=== PATIENT | female | born 1995 | race American Indian/Alaskan Native ===

== ENCOUNTER 2021-02-16 22:33 | Observation (INO) | payer SELFPAY ==
[2021-02-16] MEDS ORDERED: SODIUM CHLORIDE 0.9% 1000 ML 1,000 ML IV ONE (23:08)
[2021-02-16] MEDS ORDERED: ONDANSETRON 4 MG ODT TAB PO ONE (23:08)
[2021-02-16] MEDS ORDERED: ACETAMINOPHEN 325 MG TAB PO ONE (23:09)
[2021-02-17 00:18] LABS: Mean Corpuscular HGB Conc 26 % (30-34); Platelet Count 366 K/mm3 (140-440); Red Blood Count 2.57 M/mm3 (3.65-5.03)
[2021-02-17 00:29] LABS: Albumin 4.4 g/dL (3.9-5); BUN/Creatinine Ratio 15; Blood Urea Nitrogen 12 mg/dL (7-17); Hemolysis Index 0
[2021-02-17 00:30] LABS: Alanine Aminotransferase < 5 units/L (7-56)
[2021-02-17 00:33] LABS: Hematocrit 14.6 % (30.3-42.9); Hemoglobin 3.8 gm/dl (10.1-14.3); Mean Corpuscular Volume 57 fl (79-97)
[2021-02-17 00:34] LABS: Red Cell Distribution Width 32.8 % (13.2-15.2)
[2021-02-17] MEDS ORDERED: SODIUM CHLORIDE 0.9% 500 ML 500 ML IV ONE ×2 (01:01→04:00)
--- NOTE | 2021-02-17 01:05 | Emergency Department Report ---
HPI - General Chief Complaint: Weakness Time Seen by Provider: 02/17/21 01:01 - HPI HPI: This is a 25-year-old -[place] female presents to the emergency department with a complaint of generalized weakness, shortness of breath, nausea without vomiting, and says "I think my iron is low." Patient has a history of iron deficiency anemia, heavy menstrual cycles, and has required multiple transfusions in the past. The last time that she needed a blood transfusion was about 2 years ago. Patient says that she went to [employer] earlier today and s ays "I was not able to do anything." Any type of exertion made her feel weak and short of breath. She denies any fever, chest pain, lower extremity swelling, cough. The patient finished her menstrual cycle yesterday. She does not have a primary care physician or DIPLOMATIC COURIER. She denies any tobacco or illicit drug use. She has not taken anything for symptoms prior to presentation today. ED Past Medical Hx - Past Medical History Previous Medical History?: Yes Additional medical history: anemia - Surgical History Past Surgical History?: Yes Additional Surgical History: back ED Review of Systems ROS: Stated complaint: ELIGIO;LOW IRON;HEADACHE Other details as noted in HPI Comment: All other systems reviewed and negative Constitutional: weakness. denies: chills, fever Eyes: denies: eye pain, vision change ENT: denies: ear pain, throat pain Respiratory: shortness of breath, SOB with exertion. denies: cough Cardiovascular: denies: chest pain, edema Gastrointestinal: nausea. denies: abdominal pain, vomiting Genitourinary: abnormal menses. denies: dysuria, discharge Musculoskeletal: denies: back pain, arthralgia Skin: denies: rash, lesions Neurological: denies: numbness, paresthesias Physical Exam - Physical Exam Vital Signs: Vital Signs 02/16/21 23:04 Pulse Rate 108 H Respiratory 18 Rate Blood Pressure 102/53 O2 Sat by Pulse 99 Oximetry Physical Exam: GENERAL: The patient is well-developed well-nourished. HENT: Normocephalic. Atraumatic. Patient has moist mucous membranes. EYES: Extraocular motions are intact. Pupils equal reactive to light bilaterally. Pale conjunctiva. NECK: Supple. Trachea is midline. CHEST/LUNGS: Clear to auscultation. No tachypnea or accessory muscle use. Ther e is no respiratory distress noted. HEART/CARDIOVASCULAR: Regular. There is mild tachycardia. There is no murmur. ABDOMEN: Abdomen is soft, nontender. Patient has normal bowel sounds. SKIN: Skin is warm and dry. NEURO: The patient is awake, alert, and oriented. The patient is cooperative. The patient has no focal neurologic deficits. Normal speech. MUSCULOSKELETAL: There is no tenderness or deformity. There is no limitation range of motion. ED Course Vital Signs 02/16/21 23:04 Pulse Rate 108 H Respiratory 18 Rate Blood Pressure 102/53 O2 Sat by Pulse 99 Oximetry ED Medical Decision Making - Lab Data Result diagrams: 02/16/21 23:31 02/16/21 23:31 Lab Results 02/16/21 02/16/21 02/16/21 Range/Units 23:31 23:31 23:31 WBC 9.4 (4.5-11.0) K/mm3 RBC 2.57 L (3.65-5.03) M/mm3 Hgb 3.8 L* (10.1-14.3) gm/dl Hct 14.6 L* (30.3-42.9) % MCV 57 L (79-97) fl MCH 15 L (28-32) pg MCHC 26 L (30-34) % RDW 32.8 H (13.2-15.2) % Plt Count 366 (140-440) K/mm3 Add Manual Diff Complete Total Counted 100 Seg Neuts % (Manual) 77.0 H (40.0-70.0) % Lymphocytes % (Manual) 18.0 (13.4-35.0) % Monocytes % (Manual) 5.0 (0.0-7.3) % Nucleated RBC % Not Reportable Seg Neutrophils # Man 7.2 (1.8-7.7) K/mm3 Band Neutrophils # 0.0 K/mm3 Lymphocytes # (Manual) 1.7 (1.2-5.4) K/mm3 Abs React Lymphs (Man) 0.0 K/mm3 Monocytes # (Manual) 0.5 (0.0-0.8) K/mm3 Eosinophils # (Manual) 0.0 (0.0-0.4) K/mm3 Basophils # (Manual) 0.0 (0.0-0.1) K/mm3 Metamyelocytes # 0.0 K/mm3 Myelocytes # 0.0 K/mm3 Promyelocytes # 0.0 K/mm3 Blast Cells # 0.0 K/mm3 WBC Morphology Not Reportable Hypersegmented Neuts Not Reportable Hyposegmented Neuts Not Reportable Hypogranular Neuts Not Reportable Smudge Cells Not Reportable Toxic Granulation Not Reportable Toxic Vacuolation Not Reportable Dohle Bodies Not Reportable Pelger-Huet Anomaly Not Reportable Vita Rods Not Reportable Platelet Estimate Consistent w auto Clumped Platelets Not Reportable Plt Clumps, EDTA Not Reportable Large Platelets Not Reportable Giant Platelets Not Reportable Platelet Satelliting Not Reportable Plt Morphology Comment Not Reportable RBC Morphology Not Reportable Dimorphic RBCs Not Reportable Polychromasia Not Reportable Hypochromasia 2+ Poikilocytosis Not Reportable Anisocytosis 2+ Microcytosis 2+ Macrocytosis Not Reportable Spherocytes Not Reportable Pappenheimer Bodies Not Reportable Sickle Cells Not Reportable Target Cells Not Reportable Tear Drop Cells Not Reportable Ovalocytes Not Reportable Helmet Cells Not Reportable [place] Bodies Not Reportable [place] Rings Not Reportable [place] Cells Not Reportable Bite Cells Not Reportable Crenated Cell Not Reportable Elliptocytes Not Reportable Acanthocytes (Spur) Not Reportable Rouleaux Not Reportable Hemoglobin C Crystals Not Reportable Schistocytes Not Reportable Malaria parasites Not Reportable Olman Bodies Not Reportable Hem Pathologist Commnt No Sodium 138 (137-145) mmol/L Potassium 4.0 (3.6-5.0) mmol/L Chloride 103.1 (98-107) mmol/L Carbon Dioxide 25 (22-30) mmol/L Anion Gap 14 mmol/L BUN 12 (7-17) mg/dL Creatinine 0.8 (0.6-1.2) mg/dL Estimated GFR > 60 ml/min BUN/Creatinine Ratio 15 % Glucose 99 (65-100) mg/dL Calcium 9.0 (8.4-10.2) mg/dL Total Bilirubin 0.40 (0.1-1.2) mg/dL AST 13 (5-40) units/L ALT < 5 L (7-56) units/L Alkaline Phosphatase 59 (35-129) units/L Total Protein 7.0 (6.3-8.2) g/dL Albumin 4.4 (3.9-5) g/dL Albumin/Globulin Ratio 1.7 % HCG, Qual Negative (Negative) - Radiology Data Radiology results: image reviewed interpreted by me: Chest x-ray does not show any acute process. There are no pleural effusions, obvious pneumonia and there is no pneumothorax. No significant cardiomegaly. No widened mediastinum. - Medical Decision Making This patient presents to the emergency department with the complaint of some generalized weakness, shortness of breath with exertion, fatigue, and she had suspicion that she was anemic. The patient has required blood transfusions in the past. Her hemoglobin came back at 3.8 and it is microcytic. 3 units of packed red blood cells have been ordered for transfusion to start. This should get her close to a hemoglobin of 7. Chest x-ray did not show any pneumonia, pleural effusions, pneumothorax, widened mediastinum, or any other acute process. The rest of the blood work has been unremarkable including metabolic panel. Patient will be admitted to the hospital for further evaluation and treatment and was accepted for admission by the hospitalist, Dr. Hood. Critical Care Time: Yes Critical care time in (mins) excluding proc time.: 35 Critical care attestation.: If time is entered above; I have spent that time in minutes in the direct care of this critically ill patient, excluding procedure time. Critical care time was spent on this patient in doing her initial evaluation, multiple reevaluations, ordering and interpretation of labs and imaging, ordering of 3 units of packed red blood cells for transfusion secondary to her symptomatic anemia, and multiple discussions with the patient. Critical Care Time: 35 minutes ED Disposition Clinical Impression: Anemia requiring transfusions, Symptomatic anemia, Microcytic anemia Disposition: OP ADMIT IP TO THIS HOSP Is pt being admited?: Yes Condition: Serious Time of Disposition: 01:48
[2021-02-17] MEDS ORDERED: ACETAMINOPHEN 325 MG TAB PO PRN (02:13)
[2021-02-17] MEDS ORDERED: ONDANSETRON 4 MG/2 ML INJ IV PRN (02:13)
[2021-02-17] MEDS ORDERED: ALBUTEROL 2.5 MG/3 ML NEBU IH PRN (02:13)
--- NOTE | 2021-02-17 02:19 | History and Physical Report ---
History of Present Illness Date of examination: 02/17/21 Date of admission: 02/17/21 Chief complaint: Weakness History of present illness: 25-year-old -Italian female with history of anemia and heavy menstrual bleeding presents to the emergency department with a complaint of generalized weakness, shortness of breath, nausea without vomiting, and says "I think my iron is low." Patient has a history of iron deficiency anemia, heavy menstrual cycles, and has required multiple transfusions in the past. The last time that she needed a blood transfusion was about 2 years ago. Patient says that she went to [employer] earlier today and says "I was not able to do anything." Any type of exertion made her feel weak and short of breath. She denies any fever, chest pain, lower extremity swelling, cough. The patient finished her menstrual cycle yesterday. She does not have a primary care physician or DOUBLE BOTTOM DRIVER. She denies any tobacco or illicit drug use. She has not taken anything for symptoms prior to presentation today. In the emergency room patient is found to have hemoglobin of 3.8 and hematocrit 14.6. Patient has no active bleeding right now Past History Past Medical History: anemia Medications and Allergies Allergies Allergy/AdvReac Type Severity Reaction Status Date / Time No Known Allergies Allergy Unverified 02/16/21 23:05 Review of Systems Constitutional: weakness Respiratory: shortness of breath Gastrointestinal: nausea Exam - Constitutional Vitals: Temp Pulse Resp BP Pulse Ox 108 H 18 102/53 99 02/16/21 23:04 02/16/21 23:04 02/16/21 23:04 02/16/21 23:04 General appearance: Present: no acute distress, well-nourished - EENT Eyes: Present: PERRL ENT: hearing intact, clear oral mucosa - Neck Neck: Present: supple, normal ROM - Respiratory Respiratory effort: normal Respiratory: bilateral: CTA - Cardiovascular Heart Sounds: Present: S1 & S2. Absent: rub, click - Extremities Extremities: pulses symmetrical, No edema Peripheral Pulses: within normal limits - Abdominal General gastrointestinal: Present: soft, non-tender, non-distended, normal bowel sounds Female genitourinary: Present: normal - Integumentary Integumentary: Present: clear, warm, dry - Musculoskeletal Musculoskeletal: gait normal, strength equal bilaterally - Psychiatric Psychiatric: appropriate mood/affect, intact judgment & insight - Neurologic Neurologic: CNII-XII intact, moves all extremities Results - Labs CBC & Chem 7: 02/16/21 23:31 02/16/21 23:31 Labs: Laboratory Last Values WBC 9.4 K/mm3 (4.5-11.0) 02/16/21 23: RBC 2.57 M/mm3 (3.65-5.03) L 02/16/21 23:31 Hgb 3.8 gm/dl (10.1-14.3) L* 02/16/21 23: Hct 14.6 % (30.3-42.9) L* 02/16/21 23: MCV 57 fl (79-97) L 02/16/21 23: MCH 15 pg (28-32) L 02/16/21 23: MCHC 26 % (30-34) L 02/16/21 23: RDW 32.8 % (13.2-15.2) H 02/16/21 23:31 Plt Count 366 K/mm3 (140-440) 02/16/21 23:31 Sodium 138 mmol/L (137-145) 02/16/21 23:31 Potassium 4.0 mmol/L (3.6-5.0) 02/16/21 23: Chloride 103.1 mmol/L (98-107) 02/16/21 23: Carbon Dioxide 25 mmol/L (22-30) 02/16/21 23: Anion Gap 14 mmol/L 02/16/21 23: BUN 12 mg/dL (7-17) 02/16/21 23: Creatinine 0.8 mg/dL (0.6-1.2) 02/16/21 23: Estimated GFR > 60 ml/min 02/16/21 23:31 BUN/Creatinine Ratio 15 % 02/16/21 23: Glucose 99 mg/dL (65-100) 02/16/21 23: Calcium 9.0 mg/dL (8.4-10.2) 02/16/21 23: Total Bilirubin 0.40 mg/dL (0.1-1.2) 02/16/21 23: AST 13 units/L (5-40) 02/16/21 23: ALT < 5 units/L (7-56) L 02/16/21 23:31 Alkaline Phosphatase 59 units/L (35-129) 02/16/21 23:31 Total Protein 7.0 g/dL (6.3-8.2) 02/16/21 23:31 Albumin 4.4 g/dL (3.9-5) 02/16/21 23:31 Albumin/Globulin Ratio 1.7 % 02/16/21 23:31 HCG, Qual Negative (Negative) 02/16/21 23:31 - Imaging and Cardiology Chest x-ray: image reviewed Assessment and Plan VTE prophylaxis?: Mechanical Plan of care discussed with patient/family: Yes - Patient Problems (1) Anemia requiring transfusions Current Visit: Yes Status: Acute Plan to address problem: Admit the patient to the medical floor. Put the patient on cardiac diet. Patient is getting 3 unit of packed red blood cell transfusion. We also put the patient on iron tablet 325 mg p.o. twice daily. Recheck CBC in the morning. Wi ll consult DOUBLE BOTTOM DRIVER if needed in the morning (2) Microcytic anemia Current Visit: Yes Status: Acute Plan to address problem: Patient is getting 3 unit of packed red blood cell transfusion. We also put the patient on iron tablet 325 mg p.o. twice daily. We also sent for iron study. recheck CBC in the morning (3) DVT prophylaxis Current Visit: Yes Status: Acute Plan to address problem: SCD for DVT prophylaxis. Protonix 40 mg p.o. daily for GI prophylaxis. Patient is a full code
[2021-02-17 02:38] LABS: Total Cells Counted 100
[2021-02-17 02:39] LABS: Anisocytosis 2+; Hypochromasia 2+; Platelet Estimate Consistent w Auto
--- NOTE | 2021-02-17 02:47 | XRay Report ---
CHEST 1 VIEW 1304 INDICATION / CLINICAL INFORMATION: SOB COMPARISON: None available. FINDINGS: SUPPORT DEVICES: None HEART / MEDIASTINUM: No significant abnormality. LUNGS / PLEURA: Artifact overlies the image. No obvious acute infiltrates are seen. No pneumothorax. ADDITIONAL FINDINGS: No significant additional findings. IMPRESSION: No significant acute abnormality Signer Name: Benjamín Pitts MD Signed: 02/17/2021 2:42 AM Workstation Name: [id number]
[2021-02-17] MEDS ORDERED: PANTOPRAZOLE 40 MG TAB PO SCH (07:30)
[2021-02-17] MEDS ORDERED: IPRATROPIUM/ALBUTEROL SULFATE 3 ML AMPUL.NEB IH SCH (08:00)
[2021-02-17] MEDS: FERROUS SULFATE 325 MG TAB PO SCH ×2 (09:11→21:41)
[2021-02-17] MEDS: PANTOPRAZOLE 40 MG TAB PO SCH (09:12)
--- NOTE | 2021-02-17 09:35 | Event Note ---
Date: 02/17/21 Patient was seen and evaluated this morning, patient has severe anemia with hemoglobin of 3.48. 3 units of packed RBC was ordered and she already got 1 unit of blood and will get 2 more units. Patient's shortness of breath is getting better. Patient states she had pelvic ultrasound a year ago and was normal. Patient admitted earlier this morning and continue management as outlined in HPI.
[2021-02-18 03:04] LABS: % Iron Saturation 7.51 %
[2021-02-18 05:47] VITALS: BP 100/61
[2021-02-18 06:49] LABS: Hematocrit 27.8 % (30.3-42.9); Hemoglobin 8.7 gm/dl (10.1-14.3); Mean Corpuscular HGB Conc 31 % (30-34); Mean Corpuscular Volume 73 fl (79-97); Platelet Count 372 K/mm3 (140-440); Red Blood Count 3.79 M/mm3 (3.65-5.03)
[2021-02-18 07:08] LABS: Blood Urea Nitrogen 7 mg/dL (7-17); Calcium 8.5 mg/dL (8.4-10.2); Hemolysis Index 0
[2021-02-18 07:11] LABS: BUN/Creatinine Ratio 12
[2021-02-18] MEDS: PANTOPRAZOLE 40 MG TAB PO SCH (08:56)
[2021-02-18] MEDS: FERROUS SULFATE 325 MG TAB PO SCH (09:40)
[2021-02-18 09:53] LABS: Anisocytosis 3+; Giant Platelets Rare; Hypochromasia 2+; Platelet Estimate Consistent w Auto; Spherocytes 1+; Target Cells Rare; Total Cells Counted 100
--- NOTE | 2021-02-18 11:33 | Discharge Summary ---
Providers - Providers Date of Admission: 02/17/21 01:48 Attending physician: JOSEPHINE MATTHEWS MD Primary care physician: SPACE OPERATIONS OFFICER Hospitalization Reason for admission: shortenss of breath Condition: Stable Hospital course: 25-year-old -[place] Citizen female with history of anemia and heavy menstrual bleeding presents to the emergency department with a complaint of generalized weakness, shortness of breath, nausea without vomiting, and says "I think my iron is low." Patient has a history of iron deficiency anemia, heavy menstrual cycles, and has required multiple transfusions in the past. The last time that she needed a blood transfusion was about 2 years ago. Patient says that she went to [employer] earlier today and says "I was not able to do anything." Any type of exertion made her feel weak and short of breath. She denies any fever, chest pain, lower extremity swelling, cough. The patient finished her menstrual cycle yesterday. She does not have a primary care physician or CREATIVE SERVICES SPECIALIST. She denies any tobacco or illicit drug use. She has not taken anything for symptoms prior to presentation today. In the emergency room patient is found to have hemoglobin of 3.8 and hematocrit 14.6. Patient has no active bleeding right now Patient was seen and evaluated this morning, patient has severe anemia with hemoglobin of 3.48. 3 units of packed RBC was ordered and she already got 1 unit of blood and will get 2 more units. Patient's shortness of breath is getting better. Patient states she had pelvic ultrasound a year ago and was normal. Patient admitted earlier this morning and continue management as outlined in HPI. Patient received a total of 3 units packed red blood cell with good improvement in hemoglobin to greater than 8. She states that she is feeling well she is ambulating the time of my evaluation fully clothed with ready to be discharged. She says she will follow with her ticker installer and BOAT BUILDER doctor. I still went ahead and prescribed some referral for her if she is unable to follow-up with her doctors. Respiratory status is improved no further shortness of breath noted. (1) Anemia requiring transfusions (2) symptomatic microcytic anemia (3) menorrhagia Disposition: TO HOME OR SELFCARE Final Discharge Diagnosis (Prints w/discharge instructions): Symptomatic anemia Time spent for discharge: 32 mins Core Measure Documentation - Palliative Care Palliative Care/ Comfort Measures: Not Applicable - Core Measures Any of the following diagnoses?: none Exam - Physical Exam Narrative exam: VITAL SIGNS: Reviewed. GENERAL: The patient appears normally developed, Vital signs as documented. HEAD: No signs of head trauma. EYES: Pupils are equal. Extraocular motions intact. EARS: Hearing grossly intact. MOUTH: Oropharynx is normal. NECK: No adenopathy, no JVD. CHEST: Chest with clear breath sounds bilaterally. No wheezes, rales, or rhonchi. CARDIAC: Regular rate and rhythm. S1 and S2, without murmurs, gallops, or rubs. VASCULAR: No Edema. Peripheral pulses normal and equal in all extremities. ABDOMEN: Soft, non tender and non distended. No rebound or guarding, and no masses palpated. Bowel Sounds normal. MUSCULOSKELETAL: Good range of motion of all major joints. Extremities without clubbing, cyanosis or edema. NEUROLOGIC EXAM: Alert and oriented x 3 No focal sensory or strength deficits. Speech normal. Follows commands. PSYCHIATRIC: Mood normal. SKIN: detail exam as documented in skin assessment - Constitutional Vitals: Temp Pulse Resp BP Pulse Ox 98.3 F 63 18 100/61 100 02/18/21 05:43 02/18/21 05:43 02/18/21 05:43 02/18/21 05:43 02/18/21 05:43 Plan Activity: advance as tolerated, fall precautions Diet: low fat Special Instructions: record daily weights, record daily BP diary Additional Instructions: Follow up with Personal BOAT BUILDER AND SHOOK SPLICER. iF NON then please use recommended below Follow up with: PRIMARY CARE, [Primary Care Provider] - 7 Days ALEXANDER FELICIANO MD [Staff Physician] - 7 Days JANNETH ALVARENGA MD [Staff Physician] - 7 Days Prescriptions: Docusate Sodium [Colace] 100 mg PO DAILY PRN #30 capsule PRN Reason: Constipation Ferrous Sulfate [Feosol 325 MG tab] 325 mg PO BID #60 tablet Pantoprazole [Protonix TAB] 40 mg PO QDAC #30 tablet
== END 2021-02-18 12:00 | disposition home or self-care (01) ==
LOC: ED 22:33 → 3A 02-17 01:48
PROVIDERS: ADMIT Hospitalist; ATTEND Internal Medicine
DX: D50.9 Iron deficiency anemia, unspecified (principal); N92.0 Excessive and frequent menstruation with regular cycle
CPT/HCPCS: 36415; 36430; 71045; 80048; 80053; 83550; 84703; 85007; 85025; 86850; 86900; 86901; 86920; 96374; 99291; G0378; J2405; P9016